=== PATIENT | male | born 1980 | race Caucasian/White ===

== ENCOUNTER 2025-02-19 06:48 | Emergency (ER) | payer BC, MEDICAID ==
[~2025-02-19] VITALS: Ht 177.8 cm; Wt 65.0 kg
[~2025-02-19 06:48] MED LIST: HYDR-4383 PO
[2025-02-19 06:49] VITALS: TEMP 97.6
[2025-02-19 07:11] LABS: LEUKOCYTE ESTERASE ,URINE NEGATIVE (Neg); NITRITES, URINE NEGATIVE (Neg); OCCULT BLOOD,URINE MODERATE (Neg)
[2025-02-19 07:22] LABS: UA COLLECTION TYPE CLN CATCH MIDSTREAM
[2025-02-19 07:23] LABS: HYALINE CASTS 0-3 /LPF (NEGATIVE); MUCUS STRANDS MODERATE /LPF (Neg)
[2025-02-19 07:24] LABS: AMORPHOUS URATES 3+; CAL OXALATE CRYSTALS FEW /HPF (NEGATIVE)
[2025-02-19 07:25] LABS: SQUAMOUS EPITHELIAL CELL,UR FEW /LPF (FEW)
[2025-02-19] MEDS: ketorolac trometh 30MG/ML vial 30 MG/ML VIAL IV ONE (07:26)
[2025-02-19] MEDS: normal saline 1000ml 1,000 ML IV ONE (07:26)
[2025-02-19 07:46] LABS: MEAN PLATELET VOLUME 7.6 FL (7.4-10.4); RED CELL DISTRIBUTION WIDTH 12.5 % (11.5-14.5)
[2025-02-19 08:01] LABS: CREATININE 1.20 MG/DL (0.60-1.10); TOTAL CARBON DIOXIDE 27.4 MMOL/L (24-32); eCRCL 71 ML/MIN; eGFR 65 ML/MIN
--- NOTE | 2025-02-19 10:58 | RADIOLOGY REPORT ---
CLINICAL HISTORY: flank pain TECHNIQUE: CT of the abdomen and pelvis was performed without IV contrast. This exam was performed according to our departmental dose optimization program. Up-to-date CT equipment and radiation dose reduction techniques are utilized as appropriate. CTDI 12.4 DLP 597 COMPARISON: None FINDINGS: Abdomen/Pelvis: The spleen, pancreas, adrenal glands, gallbladder, liver, and prostate gland are grossly unremarkable. There is a 1 mm left UVJ calculus nearly completely within the bladder resulting in mild to moderate hydroureteronephrosis and periureteral/perinephric inflammatory change. There are nonobstructing right renal calculi measuring up to 1 mm. The abdominal aorta is normal in course and caliber. There are no significant atherosclerotic calcifications. There is no free intraperitoneal air or fluid. There is no enlarged abdominal pelvic lymph node. There is no bowel wall thickening or dilatation. The appendix is absent. Other: The imaged lower thorax is unremarkable. No acute osseous abnormality is evident. There is a small nonspecific bone island within the right proximal femur. Impression: 1 mm left UVJ calculus nearly completely within the bladder resulting in [id number] right hydroureteronephrosis. Punctate nonobstructing left renal calculi.
[2025-02-19 11:06] VITALS: BP 109/78; PULSE 99; RESP 14; O2SAT 98
--- NOTE | 2025-02-19 11:28 | Physician Documentation ---
History of Present Illness Chief Complaint: Abdominal Pain Stated Complaint: STOMACH PAIN GOING TO HIS BACK Time Seen by MD: 07:01 Primary Medical Doctor: none Mode of Arrival: Dropped Off HPI Left lower quadrant abdominal pain that started this morning. Patient reports severe cramping pain, radiating from L flank. Feels like his prior kidney stone. + nausea, no vomiting, no fever, no diarrhea or urinary symptoms. Medication Reconciliation Allergies: Coded Allergies: No Known Allergies (Unverified , 02/19/25) Scheduled Hydrocodone/Acetaminophen ([place] 5-325 Tablet), 1 TABLET PO TID Past Medical History Past Medical History: No Pertinent History Past Surgical History: no surgical history Alcohol Use: Occasionally Drug Use: none Lives with: Spouse Lives In: Home Occupation: employed Review of Systems All Other Systems at this time: Reviewed and Negative Physical Exam Vital Signs: RN Vital Signs have been reviewed: Yes, Temperature: 97.6, Source: Temporal, Heart Rate: 99, Respiratory Rate: 14, BP: 109/78, Pulse Oximetry: 98, Weight: 65.000 Oxygen Flow Rate: 0 Physical Exam Gen: no distress HEENT: PERRL, EOMI no neck or facial swelling, uvula midline Pulm: normal WOB, no distress Cardiac: deferred Abd: soft, NT, ND Skin: w/d/i MSK: no deformity Neuro: nonfocal Psych: normal affect Progress Results/Orders Results/Orders Orders - SUMANTH FIGUEROA MD Ct Abdomen Pelvis (02/19/25 09:12) Completed Orders - SUMANTH FIGUEROA MD Cbc/Diff (02/19/25 06:52) BMP (02/19/25 06:52) Lipase (02/19/25 06:52) CMP (02/19/25 06:52) Ketorolac Trometh 30mg/Ml Vial (Toradol (02/19/25 07:10) Normal Saline 1000ml (0.9% Sodium Chlori (02/19/25 07:10) Ua W/Microscopic, Cult If Ind (02/19/25 07:02) Ct Abdomen Pelvis (02/19/25 09:12) Medications Received in ER Medications (Trade) Dose Ordered Sig/Roe Route PRN Reason Start Time Stop Time Status Last Admin Dose Admin (Toradol inj. 30mg/ml) 30 mg ONCE ONCE IV 02/19/25 07:10 02/19/25 07:11 DC 02/19/25 07:26 30 MG Sodium Chloride 1,000 ml @ 1,000 mls/hr ONCE ONCE IV 02/19/25 07:10 02/19/25 08:09 DC 02/19/25 07:26 1,000 MLS/HR Vital Signs 02/19/25 02/19/25 02/19/25 02/19/25 06:49 07:04 07:26 08:07 Temp 97.6 Pulse 72 81 89 Resp 15 16 30 18 B/P (MAP) 122/80 115/82 (93) 113/69 (84) Pulse Ox 99 100 96 O2 Flow Rate 0 02/19/25 02/19/25 02/19/25 08:51 10:00 11:06 Pulse 93 94 99 Resp 24 22 14 B/P (MAP) 108/69 (82) 119/83 (95) 109/78 (88) Pulse Ox 100 96 98 O2 Flow Rate 0 0 0 Laboratory Tests Test 02/19/25 07:02 02/19/25 07:29 Urine Specimen Description Cln catch midstream Urine Color Yellow Urine Clarity Slightly cloudy Urine pH 8.0 Urine Specific [place] 1.020 Urine Protein 100 H Urine Glucose (UA) Negative Urine Ketones Negative Urine Occult Blood Moderate H Urine Nitrite Negative Urine Bilirubin Negative Urine Urobilinogen 1.0 Urine Leukocyte Esterase Negative Urine RBC 20-50 Urine WBC 0-4 Urine Squamous Epithelial Cells Few Urine Calcium Oxalate Crystals Few Urine Amorphous Urates 3+ Urine Bacteria Few Urine Hyaline Casts 0-3 Urine Mucus Moderate Urine Culture Indicated Not ind Volume Urine Centrifuged 10 ml Urine Comment White Blood Count 9.2 Red Blood Count 4.58 L Hemoglobin 14.2 Hematocrit 41.5 L Mean Corpuscular Volume 90.5 Mean Corpuscular Hemoglobin 31.0 Mean Corpuscular Hemoglobin Concent 34.2 Red Cell Distribution Width 12.5 Platelet Count 236 Mean Platelet Volume 7.6 Neutrophils (%) (Auto) 59.8 Lymphocytes (%) (Auto) 27.9 Monocytes (%) (Auto) 8.3 Eosinophils (%) (Auto) 3.0 Basophils (%) (Auto) 1.0 Neutrophils # (Auto) 5.5 Lymphocytes # (Auto) 2.6 Monocytes # (Auto) 0.8 Eosinophils # (Auto) 0.3 Basophils # (Auto) 0.1 CBC Comment Sodium Level 139 Potassium Level 3.4 L Chloride Level 106 Carbon Dioxide Level 27.4 Anion Gap 6 L Blood Urea Nitrogen 11 Creatinine 1.20 H Estimated GFR/1.73 m2 65 BUN/Creatinine Ratio 9.2 L Glucose Level 98 Calcium Level 8.7 Total Bilirubin 0.5 Aspartate Amino Transf (AST/SGOT) 13 Alanine Aminotransferase (ALT/SGPT) 25 Alkaline Phosphatase 132 H Total Protein 7.3 Albumin 3.8 Globulin 3.5 Albumin/Globulin Ratio 1.1 Lipase 25 Chemistry Comments Medical Decision Making Additional information obtaine: N/A Findings 44 year old male with likely kidney stone, confirmed on CT scan interpreted by me which demonstrated 1mm stone in L ureter. IVF and meds, improved, will discharge with return precautions. Differential Dx:Considerations: Other Additional Comments Ddx = diverticulitis, kidney stone, pyelonephritis, testicular pathology Departure Disposition: 01 HOME / SELF CARE / HOMELESS Impression: Primary Impression: Kidney stone Condition: Stable Discharge Instructions: Kidney Stones Referrals: NO PRIMARY CARE PROVIDER (PCP) Education Educated: Patient Educated regarding: diagnosis, treatment, prognosis, need for follow up Signature Scribe Signature: . Attestation: . SUMANTH FIGUEROA MD Feb 19, 2025 11:28
== END 2025-02-19 11:49 | disposition home or self-care (01) ==
LOC: ER 06:49
DX: N20.0 Calculus of kidney (principal); Z87.442 Personal history of urinary calculi; Z79.899 Other long term (current) drug therapy; Z72.89 Other problems related to lifestyle
CPT/HCPCS: 36415; 74176; 80053; 81001; 83690; 85025; 96361; 96374; 99285; J1885; J7030